=== PATIENT | male | born 1965 ===

== ENCOUNTER 2017-03-19 10:29 | Emergency (ER) | payer OTHER ==
[2017-03-19 10:38] VITALS: BP 139/75; PULSE 61; TEMP 97.2; O2SAT 98
[2017-03-19 10:39] VITALS: BMI 34.1
--- NOTE | 2017-03-19 11:25 | ED PDOC ---
Lower Extremity Pain/Injury Time Seen by Provider: 03/19/17 11:01 Chief Complaint (Nursing): Lower Extremity Problem/Injury Chief Complaint (Provider): left knee pain History Per: Patient Additional Complaint(s): 51 year old male presents to ED with pain to left knee s/p lifting heavy object this past Saturday and feeling sharp pain to left knee. Patient took 1 dose of advil that day after this injury and this did help the pain. He has not taken any meds for pain relief since then. He rates current pain as 7/10, worse with walking, better with rest. Past Medical History Reviewed: Historical Data, Nursing Documentation, Vital Signs Vital Signs: Last Vital Signs Temp 97.2 F L 03/19/17 10:37 Pulse 61 03/19/17 10:37 Resp BP 139/75 03/19/17 10:37 Pulse Ox 98 03/19/17 10:37 - Medical History PMH: Diabetes - Surgical History Surgical History: Cholecystectomy - Family History Family History: States: No Known Family Hx - Living Arrangements Living Arrangements: With Family - Social History Current smoker - smoking cessation education provided: No Alcohol: None Drugs: Denies - Home Medications Home Medications: Ambulatory Orders Medication Instructions Recorded Ibuprofen [Motrin Tab] 800 mg PO Q8 PRN #20 tab 03/19/17 - Allergies Allergies/Adverse Reactions: Allergies Allergy/AdvReac Type Severity Reaction Status Date / Time No Known Allergies Allergy Verified 03/19/17 10:40 Wells Criteria for PE - Wells Criteria for Pulmonary Embolism Clinical Signs and Symptoms of DVT: No P.E is #1 Diagnosis, or Equally Likely: No Heart Rate >100: No Immobilization at least 3 days;Surgery previous 4 weeks: No Previous, objectively diagnosed PE or DVT: No Hemoptysis: No Malignancy w/treatment within 6 months, or palliative: No Total Score: 0 Review of Systems ROS Statement: Except As Marked, All Systems Reviewed And Found Negative Musculoskeletal: Positive for: Other (left knee pain) Physical Exam - Reviewed Nursing Documentation Reviewed: Yes Vital Signs Reviewed: Yes - Physical Exam Appears: Positive for: Well, Non-toxic, No Acute Distress Skin: Negative for: Rash Eye Exam: Positive for: Normal appearance Extremity: Positive for: Other (tenderness to left patellar region, full rom of left knee, no calf swelling or tenderness) Neurologic/Psych: Positive for: Alert, Oriented - ECG O2 Sat by Pulse Oximetry: 98 Pulse Ox Interpretation: Normal - Other Rad Left knee x-ray X-Ray: Interpreted by Me, Viewed By Me X-Ray Interpretation: no fx, no dis, NAP Medical Decision Making Medical Decision Makin51 year old with left knee pain Plan: PO motrin X-ray left knee Patient is aware of x-ray results, all questions answered. Knee immobilizer applied to left leg. Patient given prescription for Motrin and was referred to orthopedist technician [employer] for follow up. Procedures - Splinting Location: Left knee Pre-Made Type: knee immobilizer Pre-Proc Neuro Vasc Exam: normal Post-Proc Neuro Vasc Exam: normal Disposition - Clinical Impression Clinical Impression: Knee pain - Patient ED Disposition Is Patient to be Admitted: No Counseled Patient/Family Regarding: Studies Performed, Diagnosis, Need For Followup, Rx Given - Disposition Referrals: Ray Stephens MD [Staff Provider] - Disposition: Routine/Home Disposition Time: 12:17 Condition: STABLE Additional Instructions: Ice and rest the affected area. Take prescription meds as directed as needed for pain. Follow-up with orthopedist in 2-3 days. Prescriptions: Ibuprofen [Motrin Tab] 800 mg PO Q8 PRN #20 tab PRN Reason: Pain, Moderate (4-7) Instructions: Knee Pain (ED), Knee Immobilizer (ED) Forms: [employer] ([place])
--- NOTE | 2017-03-19 12:08 | RAD ---
PROCEDURE: Left Knee Radiographs. HISTORY: Posttraumatic pain COMPARISON: None. FINDINGS: BONES: Normal. No fracture. JOINTS: Normal. No osteoarthritis. JOINT EFFUSION: None. OTHER FINDINGS: None. IMPRESSION: No acute findings related to/accounting for the clinical presentation. No preliminary report provided by emergency department personnel.
== END 2017-03-19 13:28 | disposition home or self-care (01) ==
LOC: H.ER 10:29
DX: S89.92XA Unspecified injury of left lower leg, initial encounter (principal); X50.0XXA Overexertion from strenuous movement or load, initial encounter; Y93.9 Activity, unspecified